=== PATIENT | male | born 1935 | race Caucasian/White ===

== ENCOUNTER → 2017-10-12 | Outpatient (CLI) | payer MEDICARE, BC ==
[~2017-10-12] MED LIST: REGADENOSON 0.4 MG/5 ML SYRINGE ONE
== END | disposition home or self-care (01) ==
LOC: EDSEX 08:19 → CFH 08:19
PROVIDERS: ATTEND Internal Medicine Cardiovascular Disease
DX: I21.9 Acute myocardial infarction, unspecified (principal); I34.0 Nonrheumatic mitral (valve) insufficiency; I10 Essential (primary) hypertension; E78.5 Hyperlipidemia, unspecified; G20 Parkinson's disease
CPT/HCPCS: 78452; 93017; 93306; A9502; J2785

== ENCOUNTER → 2020-10-25 | Outpatient (CLI) | payer MEDICARE, BC | END | disposition home or self-care (01) | LOC: CFH 12:28 | PROVIDERS: ATTEND Internal Medicine Cardiovascular Disease | DX: I25.9 Chronic ischemic heart disease, unspecified (principal); I25.10 Atherosclerotic heart disease of native coronary artery without angina pectoris; I25.5 Ischemic cardiomyopathy | CPT/HCPCS: 78452; 93017; A9502; J2785 ==

== ENCOUNTER 2020-10-29 15:54 | Outpatient (CLI) | payer MEDICARE, BC | END 2020-10-29 23:59 | disposition home or self-care (01) | LOC: CFH 15:54 | PROVIDERS: ATTEND Internal Medicine Cardiovascular Disease | DX: I08.3 Combined rheumatic disorders of mitral, aortic and tricuspid valves (principal); I25.10 Atherosclerotic heart disease of native coronary artery without angina pectoris; I25.5 Ischemic cardiomyopathy | CPT/HCPCS: 93306; 93356 ==

== ENCOUNTER 2020-11-25 07:51 | Day surgery (SDC) | payer MEDICARE, BC ==
[~2020-11-25] VITALS: Ht 172.7 cm; Wt 61.2 kg
[~2020-11-25 07:51] MED LIST changes: +FENTANYL PF 100 MCG/2ML ONE; +HEPARIN 1,000 UNITS/ML, 10ML ONE; +LIDOCAINE-MPF 1%, 5ML ONE; +MIDAZOLAM 1 MG/ML, 2ML ONE; -REGADENOSON 0.4 MG/5 ML SYRINGE ONE; +VERAPAMIL 2.5 MG/ML, 2ML ONE
[2020-11-25] MEDS ORDERED: VITA100C10 PO (08:02)
[2020-11-25] MEDS ORDERED: ASPI81TA45 PO (08:02)
[2020-11-25] MEDS ORDERED: OMEG1CAP23 PO (08:02)
[2020-11-25] MEDS ORDERED: CHOL10003 PO (08:02)
[2020-11-25] MEDS ORDERED: TAMS-11 PO (08:02)
[2020-11-25] MEDS ORDERED: ROSU10TA2 PO (08:02)
[2020-11-25] MEDS ORDERED: CLOP75TA PO (08:02)
[2020-11-25] MEDS ORDERED: ASCO500T8 PO (08:02)
[2020-11-25] MEDS ORDERED: CARV6.2512 PO (08:02)
[2020-11-25] MEDS ORDERED: MULT1TAB57 PO (08:02)
[2020-11-25 08:11] VITALS: BP 124/71
[2020-11-25 08:35] LABS: ANION GAP 2 mmol/L (5-15); CALCIUM 8.9 mg/dL (8.5-10.1); CHLORIDE 109 mmol/L (98-107); CREATININE 0.96 mg/dL (0.7-1.3)
[2020-11-25 08:47] LABS: BASOPHILS % (AUTO) 1 % (0-1); EOSINOPHILS % (AUTO) 2 % (1-7); LYMPHOCYTES % (AUTO) 18 % (22-44); MEAN CORPUSCULAR HEMOGLOBIN 30.8 pg (27.5-34.5); MEAN CORPUSCULAR HGB CONC 34.2 g/dL (33.2-36.2); MONOCYTES % (AUTO) 8 % (2-9); NEUTROPHILS % (AUTO) 71 % (42-75); PLATELET COUNT 176 x10^3/uL (130-400)
[2020-11-25 08:48] LABS: MD NO
[2020-11-25] MEDS ORDERED: LIDOCAINE 1%, 20ML ONE (09:31)
[2020-11-25] MEDS ORDERED: SODIUM CHLORIDE 0.9% 1,000 ML IV SCH (10:30)
== END 2020-11-25 12:38 | disposition home or self-care (01) ==
LOC: CACL 07:51
PROVIDERS: ATTEND Internal Medicine Cardiovascular Disease
DX: I25.10 Atherosclerotic heart disease of native coronary artery without angina pectoris (principal); I10 Essential (primary) hypertension; E78.5 Hyperlipidemia, unspecified; I25.5 Ischemic cardiomyopathy; E78.00 Pure hypercholesterolemia, unspecified; I34.0 Nonrheumatic mitral (valve) insufficiency; Z95.1 Presence of aortocoronary bypass graft; Z79.899 Other long term (current) drug therapy; Z79.82 Long term (current) use of aspirin; Z98.890 Other specified postprocedural states
CPT/HCPCS: 36415; 80048; 85025; 93455; 99156; 99157; C1769; C1894; J2250; J3010; Q9967; J1644